=== PATIENT | male | born 1985 | race Caucasian/White ===

== ENCOUNTER → 2018-07-05 | Outpatient (CLI) | payer BC ==
--- NOTE | 2018-07-06 09:31 | Cardiology Report ---
DATE OF STUDY: July 05, 2018 ECHOCARDIOGRAM M-MODE: Suboptimal study, poor image quality. Enlarged left atrium. Normal left ventricular wall thickness and contractility. Aortic root size is 3.4 cm. Normal mitral, aortic and tricuspid valves. No pericardial effusion. SECTOR SCAN: Mildly enlarged left atrium. Aortic root size is 3.4 cm. Normal left ventricular wall thickness and contractility. Ejection fraction is approximately 55%. Mitral, aortic and tricuspid valves appear to be normal. There is no pericardial effusion. Suboptimal study. CARDIAC DOPPLER STUDY WITH COLOR: Trace tricuspid regurgitation. CONCLUSIONS 1. Suboptimal study with poor image quality. 2. Left ventricular ejection fraction is approximately 55%. 3. Mildly enlarged left atrium. 4. Trace tricuspid regurgitation. Job#: [id number] cc:CASIMIRO MOROCHO MD
== END ==
LOC: RAD 15:28
PROVIDERS: ATTEND Family Medicine
DX: R07.89 Other chest pain (principal)
CPT/HCPCS: 93306